=== PATIENT | male | born 1995 | race Caucasian/White ===

== ENCOUNTER 2021-08-18 05:27 | Inpatient (IN) | payer OTHER, SELFPAY ==
[2021-08-18] MEDS ORDERED: Acetaminophen 500 MG TAB ONE (06:07)
[2021-08-18] MEDS ORDERED: Morphine 4 MG/ML VIAL ONE (07:28)
[2021-08-18] MEDS ORDERED: Ondansetron PF 4 MG/2 ML Vial ONE ×2 (07:28→10:08)
[2021-08-18] MEDS ORDERED: ceFAZolin 2 GM/Dextrose 50 ML 2 GM in Premix Bag 1 BAG IVPB SCH (07:30)
[2021-08-18 08:58] LABS: #Eosinphils 0.3 thou/uL (0.0-0.7); #Lymphocytes 1.3 thou/uL (1.20-3.40); #Monocytes 0.4 thou/uL (0.11-0.59); #Neutrophils 8.2 thou/uL (1.40-6.50); %Basophils 0.1 % (0.0-1.0); %Eosinophils 3.1 % (0.0-10.0); %Lymphocytes 12.3 % (21.0-51.0); %Monocytes 4.1 % (0.0-10.0); %Neutrophils 80.4 % (42.0-75.0); Hemoglobin 13.8 g/dL (14.0-18.0); Mean Corpuscular HGB CONC 33.1 g/dL (32.0-36.0); Mean Corpuscular Hemoglobin 29.7 pg (27.0-31.0); Mean Corpuscular Volume 89.6 fL (78.0-98.0); Mean Platelet Volume 8.2 fL (7.4-10.4); Platelet Count 166 thou/uL (130-400); RBC Distribution Width 12.1 % (11.5-14.5); Red Blood Cell (RBC) Count 4.65 mill/uL (4.70-6.10); White Blood Cell (WBC) Count 10.2 thou/uL (4.8-10.8)
[2021-08-18 09:12] LABS: ALT (SGPT) 17 U/L (8-55); AST (SGOT) 23 U/L (5-34); Albumin 3.7 g/dL (3.5-5.0); Alkaline Phosphatase 50 U/L (40-110); Anion Gap 7 mmol/L (10-20); BUN (Urea Nitrogen) 16 mg/dL (8.9-20.6); Bilirubin, Total 0.3 mg/dL (0.2-1.2); Calc. Creatinine Clearance 0 mL/min (70-130); Calcium 8.3 mg/dL (7.8-10.44); Carbon Dioxide 25 mmol/L (22-29); Chloride 108 mmol/L (98-107); Globulin 2.8 g/dL (2.4-3.5); Glucose 104 mg/dL (70-105); Potassium 3.7 mmol/L (3.5-5.1); Protein, Total 6.5 g/dL (6.0-8.3); Sodium 136 mmol/L (136-145)
[2021-08-18] MEDS ORDERED: Fentanyl 100 MCG/2 ML VIAL ONE ×3 (09:34→14:14)
[2021-08-18] MEDS ORDERED: Midazolam HCl 2 mg/2 ml Vial ONE (09:34)
[2021-08-18] MEDS ORDERED: Levofloxacin 500 mg/D5W 100 ml Premix Bag ONE (09:37)
[2021-08-18] MEDS ORDERED: Clindamycin/D5W 900 mg/50 ml Premix Bag ONE (09:37)
[2021-08-18] MEDS ORDERED: Succinylcholine 200 MG/10 ml SYRINGE FS ONE (10:08)
[2021-08-18] MEDS ORDERED: PROPOFOL 200 MG/20 ML VIAL ONE (10:08)
[2021-08-18] MEDS ORDERED: Lidocaine 1% PF 5 ML VIAL ONE (10:08)
[2021-08-18] MEDS ORDERED: Ketorolac Tromethamine 30 MG/ML VIAL ONE (10:08)
[2021-08-18] MEDS ORDERED: hydrALAZINE 20 MG/ML VIAL SLOW IVP PRN (11:32)
[2021-08-18] MEDS ORDERED: Ondansetron PF 4 MG/2 ML Vial IVP PRN (11:32)
[2021-08-18] MEDS ORDERED: Dextrose 50% Abboject 50 ML SYRINGE SLOW IVP PRN (11:32)
[2021-08-18] MEDS ORDERED: traMADol HCl 50 MG TAB PO PRN ×2 (11:32)
[2021-08-18] MEDS ORDERED: Morphine 4 MG/ML VIAL SLOW IVP PRN ×2 (11:32→20:31)
[2021-08-18] MEDS ORDERED: Morphine 2 MG/ML VIAL SLOW IVP PRN (11:32)
[2021-08-18] MEDS ORDERED: Dextrose 5% in Water 1,000 ML IV PRN (11:32)
[2021-08-18] MEDS ORDERED: Ibuprofen 800 MG TAB PO PRN (11:34)
[2021-08-18] MEDS ORDERED: Cyclobenzaprine 10 MG TAB PO PRN (11:34)
[2021-08-18] MEDS ORDERED: Sodium Chloride 0.9% 1,000 ML IV SCH (11:45)
[2021-08-18] MEDS ORDERED: Non-Formulary Medication 1 EACH PO PRN (12:22)
[2021-08-18] MEDS ORDERED: Ondansetron HCl/PF 4 MG/2 ML Vial IVP PRN (12:30)
[2021-08-18] MEDS ORDERED: Promethazine HCl 25 MG/ML VIAL IM/IV PRN (12:30)
[2021-08-18 12:49] LABS: SARS-CoV-2 PCR by NAA Not Detected (NotDetected)
[2021-08-18] MEDS: Acetaminophen 500 MG TAB PO SCH ×3 (16:49→23:42)
[2021-08-18] MEDS: Clindamycin/D5W 900 MG in Premix Bag 1 BAG IVPB SCH ×2 (17:50→23:43)
[2021-08-18 17:58] VITALS: BMI 31.4
[2021-08-18] MEDS: Senokot S 8.6-50 MG TAB PO SCH (21:38)
[2021-08-18] MEDS: Famotidine 20 MG TAB PO SCH (21:38)
[2021-08-19] MEDS: Acetaminophen 500 MG TAB PO SCH ×2 (06:05→16:08)
[2021-08-19 08:22] VITALS: BP 137/81; TEMP 98.3
[2021-08-19] MEDS ORDERED: Polyethylene Glycol 3350 17 GM Packet PO SCH (09:00)
[2021-08-19] MEDS: Famotidine 20 MG TAB PO SCH (09:31)
[2021-08-19] MEDS: Senokot S 8.6-50 MG TAB PO SCH (09:31)
== END 2021-08-19 16:25 | disposition home or self-care (01) | DRG 512 ==
LOC: ERS 05:27 → SDC 12:35 → SJJU 16:06
PROVIDERS: ADMIT Surgery; ATTEND Surgery
PROC: 0PSJ04Z Reposition Left Radius with Internal Fixation Device, Open Approach (ICD-10-PCS; principal; 2021-08-18)
PROC: 0PSL04Z Reposition Left Ulna with Internal Fixation Device, Open Approach (ICD-10-PCS; 2021-08-18)
DX: S52.502A Unspecified fracture of the lower end of left radius, initial encounter for closed fracture (principal); S52.602A Unspecified fracture of lower end of left ulna, initial encounter for closed fracture; X58.XXXA Exposure to other specified factors, initial encounter; F17.210 Nicotine dependence, cigarettes, uncomplicated; Z20.822 Contact with and (suspected) exposure to COVID-19; Y92.89 Other specified places as the place of occurrence of the external cause; Z88.0 Allergy status to penicillin; Z88.1 Allergy status to other antibiotic agents
CPT/HCPCS: 29105; 36415; 76000; 80053; 85025; 96374; 96375; C1713; C1874; J1885; J1956; J2250; J2270; J2405; J2704; J3010; J3490; J7050; U0003; U0005